=== PATIENT | female | born 1990 | race Caucasian/White ===

== ENCOUNTER 2017-02-19 08:05 | Emergency (ER) | payer BC ==
[~2017-02-19] VITALS: Ht 162.6 cm; Wt 67.3 kg
[~2017-02-19 08:05] MED LIST: PRENATAL1 TA1
[2017-02-19 08:07] VITALS: TEMP 98.9
[2017-02-19 10:10] VITALS: BP 104/72; PULSE 70
== END 2017-02-19 10:10 | disposition home or self-care (01) ==
LOC: COL.ER 08:05
DX: R51 Headache (principal)
CPT/HCPCS: J1200; J1885; J2765; J7030

== ENCOUNTER 2020-04-18 05:57 | Emergency (ER) | payer BC ==
[~2020-04-18] VITALS: Ht 162.6 cm; Wt 72.7 kg
[2020-04-18 06:04] VITALS: TEMP 98.3
[2020-04-18 06:21] LABS: COLLECTION METHOD CLEAN CATCH
[2020-04-18 06:31] LABS: PH 5 (5-8); SQUAMOUS EPITHELIAL 0-2 /hpf; URINE APPEARANCE Clear; URINE BACTERIA None Seen /hpf; URINE BILIRUBIN Negative (NEGATIVE); URINE BLOOD Negative (NEGATIVE); URINE COLOR Straw; URINE GLUCOSE Negative (NEGATIVE); URINE KETONE Negative (NEGATIVE); URINE LEUKOCYTE ESTERASE Negative (NEGATIVE); URINE NITRATE Negative (NEGATIVE); URINE PROTEIN(semi-quant) Negative (NEGATIVE); URINE RBC 0-2 /hpf; URINE UROBILINOGEN Negative (NEGATIVE)
[2020-04-18 06:47] LABS: BASO # 0.1 (0.0-0.2); BASO % 0.9 % (0.0-2.0); EOS # 0.2 (0.0-0.7); EOS % 2.7 % (0-4.0); GRAN # 5.5 (1.4-6.5); GRAN % 70.6 % (42.2-75.2); HEMOGLOBIN 11.3 g/dl (12.5-16.0); LYMPH # 1.4 (1.2-3.4); LYMPH % 17.9 % (20.0-51.0); MEAN CELL VOLUME 93 fl (80.0-100.0); MEAN CORPUSCULAR HEMOGLOBIN 31 pg (27.0-31.0); MEAN CORPUSCULAR HGB CONC 33 g/dl (33.0-37.0); MEAN PLATELET VOLUME 11.3 fl (7.4-10.4); MONO # 0.6 (0.1-0.6); MONO % 7.6 % (1.7-9.3); PLATELET COUNT 241 K/mm3 (130-400); RED BLOOD COUNT 3.63 M/mm3 (4.10-5.30)
[2020-04-18 06:52] LABS: HEMATOCRIT 33.8 % (37.0-47.0)
[2020-04-18 06:55] LABS: ALANINE AMINOTRANSFERASE 13 U/L (4-34); ALBUMIN 4.3 gm/dL (3.5-5.0); ALKALINE PHOSPHATASE 66 U/L (50-136); ANION GAP 7 mmol/L (7-16); AST,SGOT 21 U/L (15-37); BILIRUBIN,TOTAL 0.4 mg/dL (0.0-1.0); BLOOD UREA NITROGEN 13 mg/dL (7-17); CALCIUM 9.2 mg/dL (8.4-10.2); CARBON DIOXIDE 23 mmol/L (22-30); CHLORIDE 107 mmol/L (98-107); CREATININE, serum 0.61 (0.52-1.25); GLUCOSE 93 mg/dL (74-106); SODIUM 137 mmol/L (137-145); TOTAL PROTEIN 7.3 gm/dL (6.4-8.2)
[2020-04-18 06:56] LABS: C-REACTIVE PROTEIN < 0.5 mg/dL (0.0-0.9)
[2020-04-18] MEDS ORDERED: BENTYL 10MG10 MG/CAP PO (07:29)
[2020-04-18 07:44] VITALS: BP 115/81; PULSE 81
== END 2020-04-18 07:46 | disposition home or self-care (01) ==
LOC: COL.ER 05:57
PROVIDERS: Emergency Medicine
DX: R10.30 Lower abdominal pain, unspecified (principal)
CPT/HCPCS: J2270; J2405; J7030